=== PATIENT | female | born 1980 | race Caucasian/White ===

== ENCOUNTER 2020-04-24 07:29 | Outpatient (CLI) | payer BC, OTHER ==
[2020-04-24 12:49] LABS: BHCG - Serum Negative (NEGATIVE); Pregs Control Background? CLEAR/WHITE (CLR/WHITE); Pregs Control Bar Appear? YES (CONTROL BAR)
[2020-04-24 19:16] LABS: Hemoglobin 11.1 g/dL (12.0-16.0); Mean Corpuscular HGB CONC 31.7 g/dL (32.0-36.0); Mean Corpuscular Volume 85.1 fL (78.0-98.0); Mean Platelet Volume 9.1 fL (7.4-10.4); Platelet Count 317 thou/uL (130-400); RBC Distribution Width 26.8 % (11.5-14.5); Red Blood Cell (RBC) Count 4.11 mill/uL (4.20-5.40); White Blood Cell (WBC) Count 10.3 thou/uL (4.8-10.8)
[2020-04-25 11:55] LABS: SARS-CoV-2 MS2 Positive; SARS-CoV-2 N Gene Negative; SARS-CoV-2 S Gene Negative; SARS-CoV-2 by NAA Not Detected (NotDetected); SARS-CoV-2 orf1ab Negative
--- NOTE | 2020-04-28 01:13 | HP ---
She is scheduled for surgery on 04/29/2020. HISTORY OF PRESENT ILLNESS: Ms. Emery is a 40-year-old white female, P0 who is having very heavy menstrual bleeding. This has been ongoing for the past several months. She had documented hemoglobin of 8.1 and in the 7 range prior to this. She has received IV iron infusion by Dr. Juan C Bradford, Hematology, due to the ongoing bleeding. She has tried Provera and had continued bleeding. She was seen in my office on 04/07, and she was noted to have an enlarged uterus on exam, and she underwent transvaginal ultrasound evaluation. She has noted to have an 8 cm mainly intracavitary uterine fibroid as etiology for her heavy menstrual bleeding. She is desiring definitive surgical therapy. PAST MEDICAL HISTORY: Negative. PAST SURGICAL HISTORY: Lap cholecystectomy. OB HISTORY: She is a G3, P3. CURRENT MEDICATIONS: 1. Diclofenac ER tablet 1 daily. 2. Megace 20 mg tablet b.i.d. for the bleeding. 3. Tranexamic acid 2 tablets p.o. t.i.d. for heavy menstrual flow. She is also receiving IV iron therapy. PHYSICAL EXAMINATION: VITAL SIGNS: Her height is 5 feet 4 inches, weight 306 with a BMI of 52.5. Blood pressure 136/82, pulse of 100, respiratory rate 18, O2 saturation on room air 99%. HEENT: Within normal limits. CHEST: Clear to auscultation. HEART: Regular rate and rhythm. S1, S2 heart sounds. No murmurs, rubs, or gallops. PELVIC: Vulva and vagina had no lesions. Cervix had no lesions. Uterus, enlarged 14-week size. Endometrial biopsy was performed in my office. It sounded to 9 cm and the endometrial biopsy in proliferative findings. Adnexa, nontender with no masses. The uterus noted with a large intracavitary submucosal fibroid. The uterus measured. ASSESSMENT: This is a 40-year-old white female with a large 8 to 9 cm submucosal uterine fibroid with menorrhagia and anemia due to chronic blood loss. The patient is desiring definitive surgical therapy. PLAN: Plan is to proceed with robotic total laparoscopic hysterectomy and bilateral salpingectomy with most likely EXCITE for removal of the specimen. Risks and benefits of surgery have been discussed in detail, and she is set for surgery on 04/29/2020. Job ID: [id number]
== END 2020-04-24 07:30 | disposition home or self-care (01) ==
LOC: LABBT 07:29
PROVIDERS: ATTEND Obstetrics & Gynecology
DX: Z01.812 Encounter for preprocedural laboratory examination (principal); N92.0 Excessive and frequent menstruation with regular cycle; D21.9 Benign neoplasm of connective and other soft tissue, unspecified; Z20.828 Contact with and (suspected) exposure to other viral communicable diseases
CPT/HCPCS: 84703; 85027; 86850; 86900; 86901; 87635; U0003

== ENCOUNTER 2020-04-29 05:39 | Observation (INO) | payer BC ==
[2020-04-28 09:12] VITALS: BMI 52.2
[2020-04-29] MEDS ORDERED: Levofloxacin 500 mg/D5W 100 ml Premix Bag ONE (06:20)
[2020-04-29] MEDS ORDERED: Gabapentin 300 MG CAP ONE (06:20)
[2020-04-29] MEDS ORDERED: CeleCOXIB 100 MG CAP ONE (06:20)
[2020-04-29] MEDS ORDERED: Famotidine/PF 20 mg/2ml Vial ONE (06:20)
[2020-04-29] MEDS ORDERED: Clindamycin/D5W 900 mg/50 ml Premix Bag ONE (06:20)
[2020-04-29] MEDS ORDERED: Bupivacaine PF 0.5% 30 ML VIAL ONE (06:47)
[2020-04-29] MEDS ORDERED: Lidocaine 1% w/Epinephrine 1:100K 20 ML VIAL ONE (06:47)
[2020-04-29] MEDS ORDERED: Midazolam HCl 2 mg/2 ml Vial ONE (07:22)
[2020-04-29] MEDS ORDERED: Fentanyl 100 MCG/2 ML VIAL ONE ×3 (07:37→11:47)
[2020-04-29] MEDS ORDERED: Acetaminophen 325 MG TAB PO PRN (11:15)
[2020-04-29] MEDS ORDERED: Bisacodyl 10 MG SUPP PR PRN (11:15)
[2020-04-29] MEDS ORDERED: traMADol HCl 50 MG TAB PO PRN ×2 (11:15)
[2020-04-29] MEDS ORDERED: Zolpidem Tartrate 5 MG TAB PO PRN (11:15)
[2020-04-29] MEDS ORDERED: Simethicone Chewable 80 MG TAB PO PRN (11:15)
[2020-04-29] MEDS ORDERED: Ondansetron PF 4 MG/2 ML Vial IVP PRN (11:15)
[2020-04-29] MEDS ORDERED: diphenhydrAMINE 25 MG CAP PO PRN (11:15)
[2020-04-29] MEDS ORDERED: Estradiol 0.05mg/24 Hour Patch (Weekly) TD SCH (11:45)
[2020-04-29] MEDS ORDERED: Dexamethasone 20 MG/5 ML VIAL ONE (12:42)
[2020-04-29] MEDS ORDERED: Ondansetron PF 4 MG/2 ML Vial ONE (12:42)
[2020-04-29] MEDS ORDERED: PHENYLEPHRINE-NS 100 MCG/ML 10 ML SYRINGE ONE (12:42)
[2020-04-29] MEDS ORDERED: PROPOFOL 200 MG/20 ML VIAL ONE (12:42)
[2020-04-29] MEDS ORDERED: Rocuronium Bromide 10 MG/ML (10ML VIAL) ONE (12:42)
[2020-04-29] MEDS: Ketorolac Tromethamine 30 MG/ML VIAL IVP SCH ×2 (13:05→18:33)
[2020-04-29] MEDS: Lactated Ringer's 1,000 ML IV SCH ×2 (13:07→20:25)
--- NOTE | 2020-04-29 13:22 | OP ---
DATE OF PROCEDURE: 04/29/2020 PREOPERATIVE DIAGNOSES: 1. A 40-year-old white female, G3, P3, with menorrhagia and chronic blood-loss anemia. 2. Large 8 cm submucosal uterine fibroid. 3. Dysmenorrhea and pelvic pain. POSTOPERATIVE DIAGNOSES: 1. A 40-year-old white female, G3, P3, with menorrhagia and chronic blood-loss anemia. 2. Large 8 cm submucosal uterine fibroid. 3. Dysmenorrhea and pelvic pain. 4. Bilateral ovarian endometriomas. 5. Pelvic adhesive disease. 6. Pelvic endometriosis. PROCEDURES PERFORMED: 1. Robotic total laparoscopic hysterectomy, bilateral salpingo-oophorectomy. 2. Lysis of adhesions. ABSTRACTOR SURGEON: Rayshawn Gutierrez DO, MS. ANESTHESIA: General endotracheal. ESTIMATED BLOOD LOSS: 200 mL. COMPLICATIONS: None. COUNTS: Correct x2. ANTIBIOTICS: Levaquin and clindamycin per SCIP protocol. PATHOLOGY: Uterus, cervix, bilateral tubes and ovaries. FINDINGS: 1. Uterus was enlarged 8 cm submucosal fibroid. Pelvic adhesions draping over the uterus noted. 2. Bilateral endometriomas with chocolate filled cysts in both ovaries with ovarian and adnexal adhesions to pelvic sidewalls and the uterus, status post removal and lysis of adhesions. 3. Rectal adhesions to the lower uterine segment and posterior cul-de-sac, status post adhesiolysis. 4. Clear urine present in Hoover catheter and bladder was watertight to fluid distention over 300 mL postprocedure. DISPOSITION: Recovery room, stable. DESCRIPTION OF PROCEDURE: The patient previously received informed consent in regard to surgery. She was taken back to the operating room, where she received a general endotracheal anesthetic agent without complications. She was placed in the dorsal lithotomy position with use of Eugene stirrups, and at this time, prepped and draped in usual sterile fashion. She had a Hoover catheter inserted and a side-arm speculum was placed in the vagina. The cervix was grasped with single-tooth tenaculum and uterus sounded to 11 cm. A size 10 cm LAURYN uterine manipulator with a 4.0 cm cervical cup was placed. Tenaculum and speculum removed. Attention was then turned to the abdomen, where perspective trocar sites were infiltrated with 0.5% Marcaine with epinephrine. A 12 mm supraumbilical incision was made. Veress needle was entered in the peritoneal cavity and the patient's pressure was noted to be less than 5 mm. Abdomen was insufflated to patient pressure of 15 with approximately 5 L of carbon dioxide gas. A size 12 mm trocar was then placed. Laparoscope was introduced through the trocar sleeve and the previously mentioned findings were noted. Additional bilateral lower quadrant 8 mm trocars with the right upper quadrant fire assistant port were placed under laparoscopic guidance. The small Eagle O retractor was then placed and the supraumbilical incision was extended approximately 3 cm. The Eagle O retractor was then placed and then the prepared folded Aces endobag for specimen retrieval was then placed in the patient's left upper quadrant through the fascial defect. The GelPOINT seal was then placed with the trocars through it and the laparoscope was then reintroduced. I then broke scrub and proceeded to carry out the surgery from the operative console as my fire assistant docked the robot. The patient was in Trendelenburg position at this time. Once all the robot had been undocked, we started carrying out the surgery. The left adnexum was very adhesed to the left pelvic sidewall and to the posterior uterus. My fire assistant grasped this with atraumatic grasper. I utilized the monopolar scissors and bipolar cautery to dissect through the thin filmy layers of the adhesions and then cauterized any thicker portions, obtaining hemostasis. We continued to tease the adnexa away from the left pelvic sidewall, and freed it from the posterior uterus. This enabled us to better clear off a portion of the left infundibulopelvic pelvic ligament. This was coagulated and then transected, hugging close to the ovary. The ovary had numerous chocolate cysts that were evacuated, consistent with endometriomas. We continued to pull the specimen medially away from the pelvic sidewall, and with both blunt and sharp dissection, dissected the adnexa away from the left pelvic sidewall until it was free enough for me to reach to the left round ligament, which was coagulated and transected. The anterior leaf of the broad ligament was then entered and the vesicouterine peritoneal flap was then incised. We had some adhesions in this area, so we distended the bladder to ascertain its position, which was noted to be well away from where we anticipated the incision of the vesicouterine peritoneum. This was incised and then this allowed for me to dissect the bladder past the cervicovaginal margin both sharply and bluntly under direct visualization. We continued to skeletonize the left uterine vessels. The right ovary was then initially isolated as the right fallopian tube was removed with bipolar fenestrated cautery and monopolar scissors through my right upper quadrant port. We tried to free the right ovary from the uterus by coagulating the right uterine-ovarian ligament. This was coagulated and transected. As we further dissected the uterus away from the ovary, we noted that this was also in significant adhesions at the right ovary down to the pelvic sidewall, again contained a chocolate filled cyst consistent with endometrioma. Since that the ovary was also diseased, we decided to proceed with removal of the right ovary also due to the endometrioma and adhesions. The right IP ligament was isolated, it was coagulated hugging close to the ovary, transected, and the specimen was then delivered into the pelvis. Further dissection of the adhesions away from the pelvic sidewall was carried out as we moved the uterus medially and cut through the filmy adhesions both sharply and bluntly. The anterior leaf of the broad ligament was reached, the right round ligament was coagulated and transected. Layering of the vesicouterine peritoneum continued to dissect the bladder safely past the cervicovaginal margin. The right uterine vessels were also very carefully skeletonized in this region, coagulating them as we progressed. We further coagulated and cauterized the left uterine vessels and this allowed for us more mobility of the uterus and flexing forward in anteflexed position. This helped us to visualize the posterior cul-de-sac, where there were some perirectal adhesions. I came around there and dissected through the peritoneum and the fat very meticulously under direct visualization with countertraction by my fire assistant and some hydrodissection, able to get the rectovaginal plane developed, freeing the posterior cul-de-sac and the posterior cervix. After this had been accomplished, we proceeded to carry out the anterior colpotomy. The bladder again was checked for watertightness in its position and this was confirmed. The anterior colpotomy was then started from 12 to 9 o'clock position. We carefully dissected and coagulated the vessels of the uterus at the 9 o'clock position and then completed the posterior colpotomy from 9 to 6. Then, the rest of the colpotomy was completed from 12 to 3, again coagulating the uterine vessels meticulously at the 3 o'clock position and then completing the colpotomy from 3 to 6 o'clock. The specimen was released from the vaginal cuff. It was then also released from the LAURYN uterine manipulator and placed in the upper abdomen. The Leobardo needle concrete mixing truck driver was then exchanged with the monopolar scissors. I then grasped the vaginal cuff and coagulated that any areas of oozing with the bipolar fenestrated cautery. The pelvic sidewalls any areas of oozing were coagulated meticulously with the bipolar fenestrated cautery, securing hemostasis. My fire assistant then brought in a Stratafix suture and I closed the vaginal cuff, starting at the right angle, full-thickness closure at left angle and back towards the right angle, securing hemostasis. The excess suture and needle were removed in the right upper quadrant. We then irrigated the pelvis again. There was some oozing on the left pelvic sidewall left ovarian vein and this was carefully coagulated along its course with the bipolar fenestrated cautery by raising it up with the needle concrete mixing truck driver. Once this was accomplished and hemostasis was assured, Tisseel was placed over all the pedicles and the vaginal cuff and the areas over the rectum and the posterior cul-de-sac for added hemostasis. We then brought the endobag that had been folded in an accordion style into the pelvis. It was opened by cutting the stay sutures and the stay sutures were brought out through the right upper quadrant port. Then, the specimen was placed inside the endobag and it was secured and the suture tag was then brought up through the GelSeal port and then the bag with the specimen was brought through the Eagle O retractor. I broke the scrub after we undocked the robot. We then removed the Eagle O retractor and put it inside the endobag to protect it while we morcellated the specimen. With the C cutting technique, I removed the uterus and remaining ovary and adnexa in its entirety. The endobag remained intact. After this was completed, the endobag and the Eagle O retractor were removed. We closed the fascial defect, supraumbilical region after tagging each edge with Jose clamps and 0 Vicryl suture in running continuous fashion. The remainder of the trocar sites were closed with 4-0 Monocryl subcuticular and Dermabond. The vaginal cuff was inspected after the right ovary had been removed from and it was noted to be hemostatic. The patient was awakened from anesthesia and transferred to recovery room in stable condition. Job ID: [id number]
[2020-04-29] MEDS: Morphine 4 MG/ML VIAL SLOW IVP PRN ×2 (13:57→18:05)
[2020-04-30] MEDS: Ketorolac Tromethamine 30 MG/ML VIAL IVP SCH ×2 (00:12→05:55)
[2020-04-30] MEDS: Lactated Ringer's 1,000 ML IV SCH (00:37)
[2020-04-30 05:50] LABS: Hemoglobin 9.2 g/dL (12.0-16.0); Mean Corpuscular Hemoglobin 27.4 pg (27.0-31.0); Mean Corpuscular Volume 85.7 fL (78.0-98.0); Mean Platelet Volume 8.7 fL (7.4-10.4); Platelet Count 248 thou/uL (130-400); RBC Distribution Width 24.5 % (11.5-14.5); Red Blood Cell (RBC) Count 3.37 mill/uL (4.20-5.40); White Blood Cell (WBC) Count 10.4 thou/uL (4.8-10.8)
[2020-04-30 07:55] VITALS: BP 107/55; TEMP 98.6
--- NOTE | 2020-04-30 08:13 | DIS ---
DATE OF ADMISSION: 04/29/2020 DATE OF DISCHARGE: 04/30/2020 DIAGNOSES: 1. Symptomatic uterine fibroids. 2. Menorrhagia. 3. Anemia due to chronic blood loss. 4. Pelvic pain. 5. Dysmenorrhea. 6. Pelvic endometriosis with endometriomas. PROCEDURE PERFORMED: Robotic hysterectomy, bilateral salpingo-oophorectomy with lysis of adhesions. SUMMARY OF HOSPITAL COURSE: Ms. Emery is a 40-year-old white female, G3, P3, who had increasing heavy bleeding, was noted to have an 8 cm submucosal uterine fibroid and also reported severe dysmenorrhea and pelvic pain. Due to this, she underwent definitive surgical therapy on 04/29 with a robotic TLH-BSO with lysis of adhesions. She was noted to have significant pelvic endometriosis with bilateral endometriomas also noted. Postoperatively, the patient has done well. She is tolerating regular diet and passing flatus on the morning of postop day #1. Vital signs are stable. Hematocrit 28.9%. Voiding and ambulating without difficulty. Pathology is pending. She is discharged home with followup in 2 weeks. She is given a prescription for tramadol 50 mg q.6 hours p.r.n. pain, [id number] ibuprofen as directed, and also will initiate 1 mg estradiol tablet in a week once her estrogen patch runs out. Job ID: [id number]
[2020-04-30] MEDS ORDERED: Cholecalciferol 1,000 UNITS (25 MCG) TAB PO SCH (09:00)
[2020-04-30] MEDS ORDERED: Loratadine 10 MG TAB PO SCH (09:00)
[2020-04-30] MEDS ORDERED: CRANBERRY PO SCH (09:00)
[2020-04-30] MEDS ORDERED: Cyanocobalamin (Vitamin B-12) 1,000 MCG TAB PO SCH (09:00)
[2020-04-30] MEDS ORDERED: CULTURELLE PROBIOTIC PO SCH (09:00)
[2020-04-30] MEDS ORDERED: CRANBERRY/VIT C PO SCH (09:00)
[2020-04-30] MEDS ORDERED: [UNRECOGNIZED DRUG - OTHER] PO SCH (09:00)
[2020-04-30] MEDS ORDERED: MOVE FREE JOINT PO SCH (09:00)
[2020-04-30] MEDS ORDERED: Fish Oil 1,000 MG CAP PO SCH (09:00)
[2020-04-30] MEDS ORDERED: Ascorbic Acid 500 mg Chewable Tablet PO SCH (09:00)
[2020-05-04] MEDS ORDERED: Ibuprofen 800 MG TAB PO SCH (22:00)
== END 2020-04-30 09:40 | disposition home or self-care (01) ==
LOC: SDC 05:39 → 3SE 11:15
PROVIDERS: ADMIT Obstetrics & Gynecology; ATTEND Obstetrics & Gynecology
PROC: 0UT94ZZ Resection of Uterus, Percutaneous Endoscopic Approach (ICD-10-PCS; principal; 2020-04-30)
PROC: 0UT24ZZ Resection of Bilateral Ovaries, Percutaneous Endoscopic Approach (ICD-10-PCS; 2020-04-30)
PROC: 0UT74ZZ Resection of Bilateral Fallopian Tubes, Percutaneous Endoscopic Approach (ICD-10-PCS; 2020-04-30)
DX: D25.0 Submucous leiomyoma of uterus (principal); N80.1 Endometriosis of ovary; N80.3 Endometriosis of pelvic peritoneum; N72 Inflammatory disease of cervix uteri; D50.0 Iron deficiency anemia secondary to blood loss (chronic); Z79.899 Other long term (current) drug therapy; Z88.0 Allergy status to penicillin
CPT/HCPCS: 36415; 85027; 86850; 86900; 86901; 88307; 96374; 96375; 96376; G0378; J1100; J1885; J1956; J2250; J2270; J2405; J2704; J3010; J3490; S0020; S0028